=== PATIENT | male | born 1960 ===

== ENCOUNTER 2021-09-22 13:20 | Outpatient (REF) | payer MEDICAID, SELFPAY ==
--- NOTE | ~2021-09-22 | CT_ITS ---
EXAMINATION: CT CHEST SCREENING CLINICAL INFORMATION: Years of smoking. Still smoking COMPARISON: CT chest 08/24/2018 TECHNIQUE: Multidetector volumetric CT imaging of the chest is performed without contrast using low dose technique. Additional 2D coronal and sagittal reformatted images and axial 3D maximum intensity projection (MIP) images are generated on the CT workstation. This CT examination was performed using dose optimization techniques as appropriate, variously including the following: *Automated exposure control *Adjustment of mA and/or kV according to patient size (this includes techniques or standardized protocols for targeted exams where dose is matched to indication/reason for exam; i.e. extremities or head) *Use of iterative reconstruction technique DLP: 56 mGy-cm FINDINGS: LUNGS: There is mild centrilobular emphysema. There are scattered pulmonary nodules. A 3 mm nodule left upper lobe, axial image 122/6, pleural-based 5 mm pulmonary nodule right upper lobe, axial image 117/6, 4 mm nodule right lower lobe, axial image 266/6, 2 mm nodule left lower lobe lateral segment image 390/6 and a large calcified 1 cm nodule left lower lobe, axial image 378/6. No new nodules are seen. There is no acute consolidation, mass or ground-glass density. MEDIASTINUM: The thyroid lobes are symmetrical and normal. The central trachea and the bronchi are widely patent. Heart size and the great vessels are normal caliber. No pericardial effusion seen. No abnormal mediastinal or hilar lymph nodes. PLEURA: There is no pleural effusion. No pleural mass or thickening. AXILLA: No lymphadenopathy. UPPER ABDOMEN: There is a 5 mm nodule left hepatic lobe adjacent diaphragm axial image 51/3 and a punctate calcification right hepatic lobe image 60/3, stable. Otherwise rest of the liver, spleen, pancreas and bilateral adrenal glands are unremarkable. OSSEOUS STRUCTURES: No lytic or sclerotic process seen. There is mild ventral spondylosis. CT/CT lung screening IMPRESSION: Emphysema with no acute process. Multiple pulmonary nodules are essentially stable since 08/24/2018. ASSESSMENT: Lung-RADS category 2: Benign RECOMMENDATION: Low-dose annual CT chest.
== END 2021-09-22 13:21 | disposition home or self-care (01) ==
LOC: HO.CT 13:20
PROVIDERS: PCP Internal Medicine; Visit Provider Physician Assistant Medical
DX: Z12.2 Encounter for screening for malignant neoplasm of respiratory organs (principal); F17.210 Nicotine dependence, cigarettes, uncomplicated
CPT/HCPCS: 71271

== ENCOUNTER 2021-10-04 12:26 | Outpatient (REF) | payer MEDICAID, SELFPAY ==
[2021-10-04 13:46] LABS: MANUAL DIFF FLAG NO
[2021-10-04 13:49] LABS: Basophils Absolute Auto 0.1 X10*3/uL (0.0-0.2); Basophils Percent Auto 1.2 % (0-2); Eosinophils Absolute Auto 0.1 X10*3/uL (0.0-0.4); Eosinophils Percent Auto 1.4 % (0-4); Hematocrit 50.8 % (42.0-52.0); Hemoglobin 16.3 g/dl (14.0-18.0); Imm Gran Abs Auto 0.02 X10*3/uL (0.00-0.03); Imm Gran Pct Auto 0.3 % (0.0-0.4); Lymphocytes Absolute Auto 2.3 X10*3/uL (1.2-4.9); Lymphocytes Percent Auto 33.1 % (20-40); Mean Corpuscular HGB Conc 32.1 g/dl (31.0-36.0); Mean Corpuscular Hemoglobin 29.3 pg (27.0-33.0); Mean Corpuscular Volume 91.4 fL (80.0-98.0); Mean Platelet Volume 11.3 fL (9.4-12.4); Monocytes Absolute Auto 0.6 X10*3/uL (0.1-1.2); Monocytes Percent Auto 8.9 % (2-11); Neutrophils Absolute Auto 3.8 x10*3/uL (2.0-8.3); Neutrophils Percent Auto 55.1 % (45-73); Platelet Count 221 X10*3/uL (160-400); Red Blood Count 5.56 X10*6/uL (4.60-5.80); Red Cell Distribution Width 13.1 % (11.0-16.0); White Blood Count 6.9 X10*3/uL (4.8-10.8)
[2021-10-04 14:24] LABS: Alanine Aminotransferase 14 U/L (0-40); Albumin Level 4.1 g/dL (3.5-5.0); Alkaline Phosphatase 76 U/L (39-117); Anion Gap 13 (12-20); Aspartate Amino Transferase 14 U/L (5-37); Bilirubin Total 0.6 mg/dL (0.0-1.0); Blood Urea Nitrogen 10 mg/dL (9-16); Calcium 8.9 mg/dL (8.4-10.2); Carbon Dioxide 27 mmol/L (22-29); Chloride 104 mmol/L (96-108); Cholesterol 210 mg/dL; Estimated Glomerular Filt Rate > 60; Glucose Fasting 100 mg/dL (60-99); HDL Cholesterol 41 mg/dL; LDL Cholesterol Calculated 153 mg/dl; Potassium 4.2 mmol/L (3.3-5.1); Sodium 140 mmol/L (135-145); Total Protein 6.9 g/dL (6.5-8.0); Triglycerides 83 mg/dL
[2021-10-04 14:48] LABS: Prostate Specific Antigen 1.87 ng/mL (<0.05-4.0)
== END 2021-10-04 12:27 | disposition home or self-care (01) ==
LOC: HO.10HDL 12:26
PROVIDERS: Visit Provider Internal Medicine
DX: Z00.00 Encounter for general adult medical examination without abnormal findings (principal); Z12.5 Encounter for screening for malignant neoplasm of prostate; K21.9 Gastro-esophageal reflux disease without esophagitis; J44.9 Chronic obstructive pulmonary disease, unspecified; H81.10 Benign paroxysmal vertigo, unspecified ear; Z72.0 Tobacco use
CPT/HCPCS: 36415; 80053; 80061; 84153; 85025

== ENCOUNTER 2022-01-17 11:58 | Outpatient (REF) | payer MEDICAID, SELFPAY ==
[2022-01-17 13:48] LABS: Alanine Aminotransferase 17 U/L (0-40); Alkaline Phosphatase 69 U/L (39-117); Anion Gap 11 (12-20); Aspartate Amino Transferase 14 U/L (5-37); Bilirubin Total 0.7 mg/dL (0.0-1.0); Blood Urea Nitrogen 10 mg/dL (9-16); Carbon Dioxide 26 mmol/L (22-29); Chloride 106 mmol/L (96-108); Cholesterol 183 mg/dL; Estimated Glomerular Filt Rate > 60; Glucose Random 105 mg/dL (60-115); HDL Cholesterol 42 mg/dL; LDL Cholesterol Calculated 120 mg/dl; Potassium 4.1 mmol/L (3.3-5.1); Sodium 139 mmol/L (135-145); Total Protein 6.7 g/dL (6.5-8.0); Triglycerides 106 mg/dL
== END 2022-01-17 11:59 | disposition home or self-care (01) ==
LOC: HO.10HDL 11:58
PROVIDERS: Visit Provider Internal Medicine
DX: E78.00 Pure hypercholesterolemia, unspecified (principal); J43.9 Emphysema, unspecified; J98.4 Other disorders of lung; Z72.0 Tobacco use
CPT/HCPCS: 36415; 80053; 80061

== ENCOUNTER 2022-11-29 13:02 | Outpatient (REF) | payer MEDICAID, SELFPAY ==
--- NOTE | ~2022-11-29 | CT_ITS ---
EXAMINATION: CT CHEST SCREENING CLINICAL INFORMATION: Nicotine dependence. COMPARISON: CT chest 09/22/2021. TECHNIQUE: Multidetector volumetric CT imaging of the chest is performed without contrast using low dose technique. Additional 2-D coronal and sagittal reformatted images and axial 3-D maximum intensity projection (MIP) images are generated on the CT workstation. This CT examination was performed using dose optimization techniques as appropriate, variously including the following: *Automated exposure control *Adjustment of mA and/or kV according to patient size (this includes techniques or standardized protocols for targeted exams where dose is matched to indication/reason for exam; i.e. extremities or head) *Use of iterative reconstruction technique DLP: 57 mGy-cm FINDINGS: LUNGS: There is mild centrilobular emphysema without any acute process. Scattered pulmonary nodules are visualized. There is a 2 mm nodule right upper lobe axial image 133/6, 3 mm nodule left upper lobe axial image 117/6, 5 mm nodule subpleural based right upper lobe axial image 117/6, perivascular 2 mm nodule right upper lobe axial image 193/6, 4 mm nodule right lower lobe axial image 257/6, 1 cm calcified nodule left lower lobe axial image 363/6. MEDIASTINUM: The thyroid lobes are symmetric and normal. The central trachea and the bronchi are widely patent. The heart size and the great vessels are normal caliber. No pericardial effusion. No abnormal size mediastinal or hilar lymph nodes. CORONARY ARTERY CALCIFICATION: No abnormal coronary artery calcifications. PLEURA: There is no pleural effusion, thickening or calcification. AXILLA: Small shotty lymph nodes are seen in bilateral axillae, stable. UPPER ABDOMEN: There is a 1 cm hypodense lesion left hepatic lobe. Previously measured 5 mm. 2 mm calcification seen in the right hepatic lobe. The gallbladder is out. The spleen, pancreas and adrenal glands are unremarkable. OSSEOUS STRUCTURES: No aggressive lytic or sclerotic process seen. There is mild ventral spondylosis mid and lower dorsal spine. 2 mm calcification seen right hepatic lobe. CT/CT lung screening IMPRESSION: Multiple pulmonary nodules are stable. A 1 cm left hepatic lobe nodule is likely a small cyst with minimal change. ASSESSMENT: Lung-RADS category 2: Benign. RECOMMENDATION: Low-dose annual CT chest. Fleischner guidelines were followed.
== END 2022-11-29 13:03 | disposition home or self-care (01) ==
LOC: HO.CT 13:02
PROVIDERS: PCP Internal Medicine; Visit Provider Physician Assistant Medical
DX: Z12.2 Encounter for screening for malignant neoplasm of respiratory organs (principal); F17.210 Nicotine dependence, cigarettes, uncomplicated
CPT/HCPCS: 71271

== ENCOUNTER 2023-02-02 10:32 | Outpatient (REF) | payer MEDICAID, SELFPAY ==
[2023-02-02 13:27] LABS: MANUAL DIFF FLAG NO
[2023-02-02 13:33] LABS: Basophils Absolute Auto 0.1 X10*3/uL (0.0-0.2); Basophils Percent Auto 1.2 % (0-2); Eosinophils Absolute Auto 0.1 X10*3/uL (0.0-0.4); Eosinophils Percent Auto 1.2 % (0-4); Hematocrit 51.9 % (42.0-52.0); Hemoglobin 16.1 g/dl (14.0-18.0); Imm Gran Abs Auto 0.02 X10*3/uL (0.00-0.03); Imm Gran Pct Auto 0.2 % (0.0-0.4); Lymphocytes Absolute Auto 2.5 X10*3/uL (1.2-4.9); Lymphocytes Percent Auto 27.6 % (20-40); Mean Corpuscular Hemoglobin 28.3 pg (27.0-33.0); Mean Corpuscular Volume 91.4 fL (80.0-98.0); Mean Platelet Volume 12.1 fL (9.4-12.4); Monocytes Absolute Auto 0.7 X10*3/uL (0.1-1.2); Neutrophils Absolute Auto 5.7 x10*3/uL (2.0-8.3); Neutrophils Percent Auto 61.8 % (45-73); Platelet Count 201 X10*3/uL (160-400); Red Blood Count 5.68 X10*6/uL (4.60-5.80); Red Cell Distribution Width 13.2 % (11.0-16.0); White Blood Count 9.1 X10*3/uL (4.8-10.8)
[2023-02-02 14:12] LABS: Alanine Aminotransferase 23 U/L (0-40); Alkaline Phosphatase 91 U/L (39-117); Anion Gap 12 (12-20); Aspartate Amino Transferase 17 U/L (5-37); Bilirubin Total 0.3 mg/dL (0.0-1.0); Blood Urea Nitrogen 15 mg/dL (9-16); Calcium 8.8 mg/dL (8.4-10.2); Carbon Dioxide 28 mmol/L (22-29); Chloride 109 mmol/L (96-108); Cholesterol 165 mg/dL; Estimated Glomerular Filt Rate > 60; Glucose Random 105 mg/dL (60-115); HDL Cholesterol 37 mg/dL; LDL Cholesterol Calculated 108 mg/dl; Potassium 4.7 mmol/L (3.3-5.1); Sodium 144 mmol/L (135-145); Total Protein 6.5 g/dL (6.5-8.0); Triglycerides 100 mg/dL
[2023-02-02 14:26] LABS: Prostate Specific Antigen Scr 2.32 ng/mL (<0.05-4.0)
== END 2023-02-02 10:33 | disposition home or self-care (01) ==
LOC: HO.10HDL 10:32
PROVIDERS: Visit Provider Internal Medicine
DX: Z00.00 Encounter for general adult medical examination without abnormal findings (principal); F41.8 Other specified anxiety disorders; R19.7 Diarrhea, unspecified; Z72.0 Tobacco use
CPT/HCPCS: 36415; 80053; 80061; 84153; 85025

== ENCOUNTER 2023-03-20 20:32 | Emergency (ER) | payer MEDICAID, SELFPAY ==
--- NOTE | ~2023-03-20 | CT_ITS ---
EXAMINATION: CT ABDOMEN AND PELVIS WITHOUT CONTRAST CLINICAL INFORMATION: Right-sided abdominal pain. Rule out kidney stone. COMPARISON: None available. TECHNIQUE: Multidetector volumetric imaging was performed from the superior aspect of the liver through the pubic symphysis. Sagittal and coronal reformatted images were obtained on the technologist's workstation. This CT examination was performed using dose optimization techniques as appropriate, variously including the following: *Automated exposure control *Adjustment of mA and/or kV according to patient size (this includes techniques or standardized protocols for targeted exams where dose is matched to indication/reason for exam; i.e. extremities or head) *Use of iterative reconstruction technique DLP: 466 mGy-cm FINDINGS: LUNG BASES: The visualized lung bases are unremarkable. LIVER, GALLBLADDER, AND BILIARY TREE: The liver is normal in size, shape, and attenuation. Calcified granuloma in the right hepatic lobe. Simple cyst lateral segment of liver. No suspicious hepatic lesion or biliary ductal dilatation is present. Cholecystectomy. PANCREAS: Unremarkable. SPLEEN: Unremarkable. ADRENAL GLANDS: Unremarkable. KIDNEYS AND URETERS: The kidneys are normal in size, shape, and attenuation. No hydronephrosis, hydroureter, or calculi seen. There is a 7.6 cm simple fluid attenuating cyst in the lower pole right kidney, and a 1.4 cm simple cyst in the upper pole right kidney. No follow-up imaging recommended. No perinephric stranding. BLADDER: Unremarkable. GASTROINTESTINAL TRACT: Left colonic diverticulosis. No evidence of diverticulitis. Normal appendix. Stomach and small bowel unremarkable. ABDOMINAL WALL: No significant hernia is appreciated. LYMPH NODES: Normal. VASCULAR: Unremarkable. PELVIC VISCERA: Prostate is enlarged with median lobe impressing into the bladder base approximately 2 cm. Seminal vesicles unremarkable. OSSEOUS STRUCTURES: No acute or suspicious osseous abnormalities. CT/CT abdomen pelvis wo IV con IMPRESSION: * No urinary calculi or hydronephrosis. * Left colonic diverticulosis without evidence of diverticulitis. * Cholecystectomy.
[2023-03-20 20:35] VITALS: BP 146/76; PULSE 72; RESP 18; TEMP 36.8; O2SAT 94; BMI 28.3
--- NOTE | 2023-03-20 20:35 | ED_ITS ---
HPI - Abdominal Pain General Chief Complaint: Abdominal Pain Stated Complaint: right upper quad pain Time Seen by Provider: 03/20/23 22:25 Source: patient, family and translator/interpreter Mode of arrival: ambulatory Limitations: no limitations History of Present Illness HPI narrative: 62-year-old male came in for evaluation of right-sided upper abdominal pain. Pain was described to be intermittent moderate 5/10 localized to the right upper abdomen area pain is intermittent comes and goes usually get relieved after eat, patient had similar pain in the past presented to [facility] diagnosed with cholecystitis patient had cholecystectomy about 10 months ago patient still get that similar pain every now and then, pain started since this morning localized to the right upper quadrant, no nausea, no vomiting, no chills, no fever. Last bowel movement was 2 days ago with hard stool patient usually suffer from cons tipation. No dysuria, no frequency urination, no hematuria. Only past abdominal surgery is cholecystectomy. Related Data Allergies Allergy/AdvReac Type Severity Reaction Status Date / Time aspirin Allergy Unknown gastritis Verified 03/20/23 20:39 penicillin V Allergy Unknown rash Verified 03/20/23 20:39 Review of Systems Review of Systems All other systems are reviewed and are negative Constitutional: Reports as per HPI and Reports no additional constitutional complaints Eyes: Reports as per HPI and Reports no additional eye complaints Reports system reviewed and no additional complaints, except as documented Cardiovascular: Reports as per HPI and Reports no additional cardiovascular complaints Respiratory: Reports as per HPI and Reports no additional respiratory complaints Gastrointestinal: Reports as per HPI and Reports no additional gastrointestinal complaints Genitourinary: Reports no additional female genitourinary complaints Musculoskeletal: Reports no additional musculoskeletal complaints Skin/Breast: Reports system reviewed and no additional complaints, except as docu Psychiatric: Reports no additional psychiatric complaints Endocrine: Reports no additional endocrine complaints Hematologic/Lymphatic: Reports no additional hematologic/lymphatic complaints Allergic/Immunologic: Reports no additional allergic/immunologic complaints Reports system reviewed and no additional complaints, except as documented and Reports Abnormal speech present [facility] Social History Social History Advance Directives: No Advance Directives Information Provided: Yes Physical Exam ED Vital Signs: Vital Signs - 24 hr 03/20/23 20:35 03/20/23 22:39 Temperature 98.2 F Pulse Rate 72 72 Respiratory Rate 18 18 Blood Pressure 146/76 H Pulse Oximetry 94 Oxygen Delivery Method Room Air BMI result Body Mass Index 28.3 Vital signs have been reviewed as appeared to be correct. Blood pressure normal. Heart rate normal. Respiration rate normal. Temperature normal. Oxygen saturation normal. Appearance: Alert. Oriented X3. No acute distress. Head: Normal external exam. Normocephalic. Atraumatic. No Mehta signs noted. No raccoon eyes noted Eyes: PERRLA. EOMI. Conjunctiva and sclera normal. Eyelids normal. ENT: TM's Normal. Pharynx normal. Uvula midline. Moist mucous membranes. No trismus noted. No drooling noted. No muffled voice noted. Neck: Normal inspection. Neck supple. FROM. No adenopathy. Thyroid Normal. No meningeal signs. No neck mass noted. CVS: Normal heart rate and rhythm. Heart sound normal. No murmurs noted. Pulses normal throughout. Respiratory: No respiratory distress. Painless inspiration. Breath sounds normal. No wheezes/rales/rhonchi noted. Chest nontender. No accessory muscle usage noted or decreased air movement noted. Abdomen: Soft and nontender. Bowel sounds normal in all 4 quadrants. No distention noted. No organomegaly noted. No visible injury noted. Back: No CVA tenderness. Full range of motion noted. Skin: Skin warm and dry. Normal skin color. Normal skin turgor. No rashes/ lesions/lacerations noted. Extremities: No lower extremity edema. Extremities exhibit normal range of motion. Extremities nontender. Neuro: Oriented X 3. Cranial nerve exam: II-XII are grossly intact No motor deficit. No sensory deficit. Reflexes normal. Course Course Course Narrative: This is a rapid medical exam. Deferred additional HPI, ROS, PE to primary provider. 62 yo male who had cholecystecomy in August at [facility] here RUQ for months (pain has continued since surgery). No other associated symptoms. Will check labs, UA. VSS Reevaluation(s) Reevaluation #1: 62-year-old male with intermittent right abdominal pain, abdominal exam is unremarkable, CT showing no postoperative complication from cholecystectomy, patient is scheduled to have colonoscopy next month. Unremarkable labs. Medical Decision Making Differential Diagnosis Differential Diagnoses: The differential diagnosis associated with the presenta tion includes (Acute appendicitis, kidney stone, post cholecystectomy complication, diverticulitis, SBO, UTI, electrolyte abnormality, severe anemia.) Admission/Observation Consideration of admission/observation: Escalation of care including admission /observation considered Lab Data MDM Lab Attestation statement: I reviewed the patient's lab results. 03/20/23 20:51 03/20/23 20:51 Labs: Lab Results 03/20/23 03/20/23 03/20/23 Range/Units 20:51 20:51 20:51 WBC 9.2 (4.8-10.8) X10*3/uL RBC 5.44 (4.60-5.80) X10*6/uL Hgb 16.0 (14.0-18.0) g/dl Hct 49.3 (42.0-52.0) % MCV 90.6 (80.0-98.0) fL MCH 29.4 (27.0-33.0) pg MCHC 32.5 (31.0-36.0) g/dl RDW 13.2 (11.0-16.0) % Plt Count 221 (160-400) X10*3/uL MPV 11.1 (9.4-12.4) fL Immature Gran % (Auto) 0.3 (0.0-0.4) % Neut % (Auto) 52.9 (45-73) % Lymph % (Auto) 35.5 (20-40) % [place] % (Auto) 9.2 (2-11) % Eos % (Auto) 1.0 (0-4) % Baso % (Auto) 1.1 (0-2) % Lymph # (Auto) 3.3 (1.2-4.9) X10*3/uL [place] # (Auto) 0.8 (0.1-1.2) X10*3/uL Eos # (Auto) 0.1 (0.0-0.4) X10*3/uL Baso # (Auto) 0.1 (0.0-0.2) X10*3/uL Abs Immat Gran (auto) 0.03 (0.00-0.03) X10*3/uL Absolute Neuts (auto) 4.8 (2.0-8.3) x10*3/uL Absolute Nucleated RBC 0.000 (0.0-0.012) X10*3/uL Nucleated RBC % (auto) 0.0 (0.0-0.2) /100WBC Sodium 141 (135-145) mmol/L Potassium 4.4 (3.3-5.1) mmol/L Chloride 107 (96-108) mmol/L Carbon Dioxide 27 (22-29) mmol/L Anion Gap 11 L (12-20) BUN 12 (9-16) mg/dL Creatinine 0.87 (0.5-1.4) mg/dL Estim Creat Clear Calc 83.2 Estimated GFR > 60 Random Glucose 100 (60-115) mg/dL Calcium 8.7 (8.4-10.2) mg/dL Total Bilirubin 0.5 (0.0-1.0) mg/dL Direct Bilirubin 0.1 (0.0-0.5) mg/dL AST 14 (5-37) U/L ALT 18 (0-40) U/L Alkaline Phosphatase 85 (39-117) U/L Total Protein 6.5 (6.5-8.0) g/dL Albumin 3.9 (3.5-5.0) g/dL Lipase 11 (8-78) U/L Urine Color Yellow Urine Appearance Clear Urine pH 5.5 (5.0-9.0) Ur Specific [place] 1.020 (1.005-1.025) Urine Protein Negative (Neg-Trace) mg/dL Urine Glucose (UA) Negative (Negative) mg/dL Urine Ketones Negative (Negative) mg/dL Urine Blood Small (1+) H (Negative) Urine Nitrite Negative (Negative) Ur Leukocyte Esterase Negative (Negative) Urine RBC 3-5 H (0-2) /HPF Urine WBC 0-5 (0-5) /HPF Ur Squamous Epith Cells 0-2 (0-2) /HPF Urine Bacteria None Seen (None Seen) Hyaline Casts 0-2 (0-2) /LPF Independent Interpretation I performed an independent interpretation of an: CT Scan (Abdomen and pelvis: No acute abnormalities.) Radiology Impression Discussion of test interpretation with radiology: I have reviewed the radiologist's reading. Chronic Conditions Patient?s care impacted by: Other (Chronic abdominal pain, and constipation.) Discharge Plan Discharge Clinical Impression: Abdominal pain Patient Disposition: Home, Self-Care Instructions: Abdominal Pain (ED) Referrals: Becky Rayo MD [Primary Care Provider] -
[2023-03-20 20:56] LABS: MANUAL DIFF FLAG NO
[2023-03-20 21:01] LABS: Appearance Urine Clear; Color Urine Yellow; Glucose Urine UA Negative (Negative); Leukocyte Esterase Urine Negative (Negative); Nitrite Urine Negative (Negative); PH 5.5 (5.0-9.0); UMIC TRIGGER UACC YES; Urine Blood Small (1+) (Negative); Urine Ketones Negative (Negative); Urine Protein Negative (Neg-Trace)
[2023-03-20 21:07] LABS: Bacteria Urine None Seen (None Seen); Hyaline Casts Urine 0-2 /LPF (0-2); Squamous Epithelial Cell Urine 0-2 /HPF (0-2); WBC Urine 0-5 /HPF (0-5)
[2023-03-20 21:08] LABS: Basophils Absolute Auto 0.1 X10*3/uL (0.0-0.2); Basophils Percent Auto 1.1 % (0-2); Eosinophils Absolute Auto 0.1 X10*3/uL (0.0-0.4); Hematocrit 49.3 % (42.0-52.0); Imm Gran Abs Auto 0.03 X10*3/uL (0.00-0.03); Imm Gran Pct Auto 0.3 % (0.0-0.4); Lymphocytes Absolute Auto 3.3 X10*3/uL (1.2-4.9); Lymphocytes Percent Auto 35.5 % (20-40); Mean Corpuscular HGB Conc 32.5 g/dl (31.0-36.0); Mean Corpuscular Hemoglobin 29.4 pg (27.0-33.0); Mean Corpuscular Volume 90.6 fL (80.0-98.0); Mean Platelet Volume 11.1 fL (9.4-12.4); Monocytes Absolute Auto 0.8 X10*3/uL (0.1-1.2); Monocytes Percent Auto 9.2 % (2-11); Neutrophils Absolute Auto 4.8 x10*3/uL (2.0-8.3); Neutrophils Percent Auto 52.9 % (45-73); Platelet Count 221 X10*3/uL (160-400); Red Blood Count 5.44 X10*6/uL (4.60-5.80); Red Cell Distribution Width 13.2 % (11.0-16.0); White Blood Count 9.2 X10*3/uL (4.8-10.8)
[2023-03-20 21:11] LABS: Alanine Aminotransferase 18 U/L (0-40); Albumin Level 3.9 g/dL (3.5-5.0); Alkaline Phosphatase 85 U/L (39-117); Anion Gap 11 (12-20); Aspartate Amino Transferase 14 U/L (5-37); Bilirubin Direct 0.1 mg/dL (0.0-0.5); Bilirubin Total 0.5 mg/dL (0.0-1.0); Blood Urea Nitrogen 12 mg/dL (9-16); Calcium 8.7 mg/dL (8.4-10.2); Carbon Dioxide 27 mmol/L (22-29); Chloride 107 mmol/L (96-108); Creatinine Clr Calc Pharmacy 83.2; Estimated Glomerular Filt Rate > 60; Glucose Random 100 mg/dL (60-115); Lipase 11 U/L (8-78); Potassium 4.4 mmol/L (3.3-5.1); Sodium 141 mmol/L (135-145); Total Protein 6.5 g/dL (6.5-8.0)
[2023-03-20 22:39] VITALS: PULSE 72; RESP 18
== END 2023-03-20 23:56 | disposition home or self-care (01) ==
PROVIDERS: Nurse Practitioner Family; Emergency Provider Emergency Medicine; PCP Internal Medicine
DX: R10.11 Right upper quadrant pain (principal); Z90.49 Acquired absence of other specified parts of digestive tract
CPT/HCPCS: 36415; 74176; 80048; 80076; 81001; 81003; 83690; 85025; 99284

== ENCOUNTER 2023-06-17 20:57 | Emergency (ER) | payer MEDICAID, SELFPAY ==
[2023-06-17 21:04] VITALS: BP 135/69; PULSE 75; RESP 18; TEMP 37.4; O2SAT 95; BMI 29.2
[2023-06-17 21:32] LABS: MANUAL DIFF FLAG NO
[2023-06-17 21:35] LABS: Basophils Absolute Auto 0.1 X10*3/uL (0.0-0.2); Basophils Percent Auto 1.1 % (0-2); Eosinophils Absolute Auto 0.1 X10*3/uL (0.0-0.4); Eosinophils Percent Auto 1.4 % (0-4); Hemoglobin 15.5 g/dl (14.0-18.0); Imm Gran Abs Auto 0.03 X10*3/uL (0.00-0.03); Imm Gran Pct Auto 0.3 % (0.0-0.4); Lymphocytes Percent Auto 33.4 % (20-40); Mean Corpuscular HGB Conc 32.3 g/dl (31.0-36.0); Mean Corpuscular Hemoglobin 28.9 pg (27.0-33.0); Mean Corpuscular Volume 89.4 fL (80.0-98.0); Mean Platelet Volume 10.6 fL (9.4-12.4); Monocytes Absolute Auto 0.7 X10*3/uL (0.1-1.2); Monocytes Percent Auto 8.2 % (2-11); Neutrophils Percent Auto 55.6 % (45-73); Platelet Count 226 X10*3/uL (160-400); Red Blood Count 5.37 X10*6/uL (4.60-5.80); Red Cell Distribution Width 12.9 % (11.0-16.0); White Blood Count 9.1 X10*3/uL (4.8-10.8)
[2023-06-17 21:47] LABS: Alanine Aminotransferase 14 U/L (0-40); Albumin Level 3.7 g/dL (3.5-5.0); Alkaline Phosphatase 79 U/L (39-117); Anion Gap 11 (12-20); Aspartate Amino Transferase 14 U/L (5-37); Bilirubin Direct < 0.2 mg/dL (0.0-0.5); Bilirubin Total 0.2 mg/dL (0.0-1.0); Blood Urea Nitrogen 12 mg/dL (9-16); Calcium 8.9 mg/dL (8.4-10.2); Carbon Dioxide 27 mmol/L (22-29); Chloride 108 mmol/L (96-108); Creatinine Clr Calc Pharmacy 82.5; Estimated Glomerular Filt Rate > 60; Glucose Random 100 mg/dL (60-115); Lipase 13 U/L (8-78); Potassium 3.5 mmol/L (3.3-5.1); Sodium 142 mmol/L (135-145); Total Protein 6.7 g/dL (6.5-8.0)
--- NOTE | 2023-06-17 23:21 | ED_ITS ---
HPI - Abdominal Pain General Chief Complaint: Abdominal Pain Stated Complaint: abd pain Time Seen by Provider: 06/17/23 23:16 Source: patient Mode of arrival: ambulatory Limitations: no limitations History of Present Illness HPI narrative: Patient is smoker with history of cholecystectomy in 09/20 comes here for ep igastric pain since patient had the surgery done patient been to multiple hospitals for same workup was negative scheduled to see accounts receivable manager next month pain gets worse when he is empty stomach wakes up in the night with pain and after eating pain gets better no nausea no vomiting no melena no use of steroids or NSAIDs patient never had endoscopy done in the past no nausea no vomiting Related Data Previous Rx's Medication Instructions Recorded pantoprazole 40 mg tablet,delayed 40 mg PO DAILY #30 tabs 06/17/23 release (Protonix) sucralfate 1 gram tablet 1 g PO TID #90 tabs 06/17/23 Allergies Allergy/AdvReac Type Severity Reaction Status Date / Time aspirin Allergy Unknown gastritis Verified 03/20/23 20:39 penicillin V Allergy Unknown rash Verified 03/20/23 20:39 morphine AdvReac Chest Pain Verified 06/17/23 21:11 Review of Systems Review of Systems Yes all other systems are reviewed and are negative [facility] Social History Social History Advance Directives: No Advance Directives Information Provided: No Physical Exam ED Vital Signs: Vital Signs - 24 hr 06/17/23 21:04 Temperature 99.4 F Pulse Rate 75 Respiratory Rate 18 Blood Pressure 135/69 Pulse Oximetry 95 BMI result Body Mass Index 29.2 Appearance: Alert. Oriented X3. No acute distress. Eyes: PERRLA, No Nystagmus ENT: Pharynx normal. Oral Mucosa moist Neck: Normal inspection. Neck supple. CVS: Normal heart rate and rhythm. Pulses normal. Respiratory: No respiratory distress. Equal air entry bilateral, no wheezing/rales/rhonchi Abdomen: Soft mild epigastric tenderness Bowel sounds are present, no mass palpable, no CVA tenderness Skin: Skin warm and dry. Normal skin color. Normal skin turgor. Extremities: No lower extremity edema. No calf tenderness Neuro: Oriented X 3. No motor deficit. Medical Decision Making Medical Decision Making MDM Narrative: Patient is status post cholecystectomy smoker clinically patient does have a gastritis/duodenitis with pain getting worse on empty stomach discharge patient on Protonix patient is scheduled to see accounts receivable manager next week for endoscopy Differential Diagnosis Differential Diagnoses: The differential diagnosis associated with the presentation includes Gastritis/duodenitis/CBD stone Lab Data MDM Lab Attestation statement: I reviewed the patient's lab results. 06/17/23 21:27 06/17/23 21:27 Labs: Lab Results 06/17/23 06/17/23 Range/Units 21:27 21:27 WBC 9.1 (4.8-10.8) X10*3/uL RBC 5.37 (4.60-5.80) X10*6/uL Hgb 15.5 (14.0-18.0) g/dl Hct 48.0 (42.0-52.0) % MCV 89.4 (80.0-98.0) fL MCH 28.9 (27.0-33.0) pg MCHC 32.3 (31.0-36.0) g/dl RDW 12.9 (11.0-16.0) % Plt Count 226 (160-400) X10*3/uL MPV 10.6 (9.4-12.4) fL Immature Gran % (Auto) 0.3 (0.0-0.4) % Neut % (Auto) 55.6 (45-73) % Lymph % (Auto) 33.4 (20-40) % [place] % (Auto) 8.2 (2-11) % Eos % (Auto) 1.4 (0-4) % Baso % (Auto) 1.1 (0-2) % Lymph # (Auto) 3.0 (1.2-4.9) X10*3/uL [place] # (Auto) 0.7 (0.1-1.2) X10*3/uL Eos # (Auto) 0.1 (0.0-0.4) X10*3/uL Baso # (Auto) 0.1 (0.0-0.2) X10*3/uL Abs Immat Gran (auto) 0.03 (0.00-0.03) X10*3/uL Absolute Neuts (auto) 5.0 (2.0-8.3) x10*3/uL Absolute Nucleated RBC 0.000 (0.0-0.012) X10*3/uL Nucleated RBC % (auto) 0.0 (0.0-0.2) /100WBC Sodium 142 (135-145) mmol/L Potassium 3.5 D (3.3-5.1) mmol/L Chloride 108 (96-108) mmol/L Carbon Dioxide 27 (22-29) mmol/L Anion Gap 11 L (12-20) BUN 12 (9-16) mg/dL Creatinine 0.86 (0.5-1.4) mg/dL Estim Creat Clear Calc 82.5 Estimated GFR > 60 Random Glucose 100 (60-115) mg/dL Calcium 8.9 (8.4-10.2) mg/dL Total Bilirubin 0.2 (0.0-1.0) mg/dL Direct Bilirubin < 0.2 (0.0-0.5) mg/dL AST 14 (5-37) U/L ALT 14 (0-40) U/L Alkaline Phosphatase 79 (39-117) U/L Total Protein 6.7 (6.5-8.0) g/dL Albumin 3.7 (3.5-5.0) g/dL Lipase 13 (8-78) U/L Medications Administered Discontinued Medications Generic Name Dose Route Start Last Admin Trade Name Freq PRN Reason Stop Dose Admin Al Hydroxide/Mg Hydroxide 30 ml 06/17/23 23:45 06/17/23 23:58 Magnesium Hydrox/Alum Hydrox 30 Ml Oral.Susp PO 06/17/23 23:46 30 ml ONCE ONE Administration Omeprazole 40 mg 06/17/23 23:45 06/17/23 23:58 Omeprazole 40 Mg Capsule.Dr PO 06/17/23 23:46 40 mg ONCE ONE Administration Discharge Plan Discharge Clinical Impression: Chronic gastritis Patient Disposition: Home, Self-Care Instructions: Gastritis (ED) Additional Instructions: Drink plenty of fluids Stop smoking Take the medication as prescribed and follow-up with accounts receivable manager as scheduled Prescriptions: New pantoprazole [Protonix] 40 mg tablet,delayed release (DR/EC) 40 mg PO DAILY Qty: 30 0RF sucralfate 1 gram tablet 1 g PO TID Qty: 90 0RF Rx Instructions: Take 1 tablet half an hour before your meals Interventions: ED Discharge Assessment Last Done: 06/18/23 00:03 Discharge Date/Time: 06/18/23 00:04 Print Language: [place]
[2023-06-17] MEDS: Magnesium Hydrox/Alum Hydrox 30 ML ORAL.SUSP PO (23:58)
[2023-06-17] MEDS: Omeprazole 40 MG CAPSULE.DR PO (23:58)
== END 2023-06-18 00:04 | disposition home or self-care (01) ==
PROVIDERS: Emergency Provider Internal Medicine; PCP Internal Medicine
DX: K29.50 Unspecified chronic gastritis without bleeding (principal)
CPT/HCPCS: 36415; 80048; 80076; 83690; 85025; 99282; 99283

== ENCOUNTER 2023-07-10 11:31 | Outpatient (REF) | payer MEDICAID, SELFPAY ==
[2023-07-10 13:42] LABS: Cholesterol 157 mg/dL (<200); HDL Cholesterol 37 mg/dL (>40); LDL Cholesterol Calculated 100 mg/dL (<100); Triglycerides 102 mg/dL (<150)
== END 2023-07-10 11:32 | disposition home or self-care (01) ==
LOC: HO.10HDL 11:31
PROVIDERS: Visit Provider Internal Medicine
DX: J44.9 Chronic obstructive pulmonary disease, unspecified (principal); R10.11 Right upper quadrant pain; R31.29 Other microscopic hematuria; Z72.0 Tobacco use
CPT/HCPCS: 36415; 80061

== ENCOUNTER 2023-07-17 09:09 | Day surgery (SDC) | payer MEDICAID, SELFPAY ==
[2023-07-17 10:25] VITALS: BMI 27.8
[2023-07-17 10:28] VITALS: BP 127/76; PULSE 67; RESP 18; TEMP 36.8; O2SAT 95
[2023-07-17] MEDS: Lactated Ringers 1,000 ML 50 ML IVCONT (10:52)
--- NOTE | 2023-07-17 10:56 | P.CONAN_ITS ---
HPI - Anesthesia Eval Consult details Narrative: 62 M for EGD and colonoscopy [facility] Past Medical History Medical History (Updated 07/13/23 @ 13:47 by Angélica Newman, RN) Hyperlipemia GERD (gastroesophageal reflux disease) Asthma Family History Family history of problems with anesthesia: No Surgical History Surgical History (Updated 07/13/23 @ 13:47 by Angélica Newman RN) History of tonsillectomy H/O hand surgery Hx of colonoscopy History of Problems with Anesthesia: No Social History Social History Patient Tobacco Use Status: Current everyday Tobacco user Tobacco use type: Cigarette Cigarette Packs Per Day: 1 Cigarettes Per Day: 20.0 Date Education Initiated: 07/17/23 Use of substances other than those prescribed or required for medical reasons: No Are you DNR?: No Advance Directives: No Advance Directives Information Provided: Yes Meds Allergies Allergy/AdvReac Type Severity Reaction Status Date / Time aspirin Allergy Unknown gastritis Verified 03/20/23 20:39 penicillin V Allergy Unknown rash Verified 03/20/23 20:39 morphine AdvReac Chest Pain Verified 06/17/23 21:11 Active Medications: Current Medications Lactated Ringer's (Lr) 1,000 mls @ 50 mls/hr IVCONT .Q20H ADRIANA Last Admin: 07/17/23 10:52 Dose: 50 mls/hr Sodium Biphosphate/Sodium Phosphate (Sodium Phosphate,Roane-Dibasic 133 Ml Enema) 133 ml HI ONCE PRN PRN Reason: Poor Colonoscopy Prep Results Home Medications Medication Instructions Recorded Confirmed Last Taken Type atorvastatin 80 mg tablet 80 mg PO BEDTIME 07/13/23 07/13/23 Unknown History bupropion HCl 300 mg 24 hr tablet, 300 mg PO DAILY 07/13/23 07/13/23 Unknown History extended release ondansetron 4 mg disintegrating 4 mg PO Q12H PRN nausea 07/13/23 07/13/23 Unknown History tablet pantoprazole 40 mg tablet,delayed 40 mg PO DAILY 07/13/23 07/13/23 Unknown History release umeclidinium 62.5 mcg-vilanterol 1 ea inhalation DAILY 07/13/23 07/13/23 Unknown History 25 mcg/actuation powdr for inhalation (Anoro Ellipta) Exam Exam Date and Time: July 17, 2023 1056 Height,Weight and Vital Signs: Height 5 ft 4 in Weight 73.482 kg Last Vital Signs Temp 98.3 F 07/17/23 10:28 Pulse 67 07/17/23 10:28 Resp 18 07/17/23 10:28 BP 127/76 07/17/23 10:28 Pulse Ox 95 07/17/23 10:28 O2 Del Method Room Air 07/17/23 10:28 Airway Mallampati Class: III Loose/Missing/Broken Teeth: Yes Assessment and Plan Assessment Anesthesia Assessment: Anesthesia Plan Discussed and Chart Reviewed Final Anesthetic Review Family History of Problems with Anesthesia: No History of Problems with Anesthesia: No NPO: Yes ASA Class: III Final Preanesthetic Review: Meds/Allgs Chart Reviewed, Consent Obtained/Reviewed and Anes Risks/Benef Reviewed Patient Risk: Intermediate Procedure Risk: Intermediate Anesthetic Plan Anesthetic Plan: MAC: and Agree w/ Assess. and Plan Disposition: Standard PACU
[2023-07-17 12:30] VITALS: BP 116/56; PULSE 80; RESP 16; TEMP 36.2; O2SAT 98
--- NOTE | 2023-07-17 12:36 | P.BOP_ITS ---
Brief Operative Note Date of Service: 07/17/23 Pre-op diagnosis: GERD, Screening Post-op diagnosis: other (Hiatal hernia, Colon Polyps) Procedure: Colonoscopy to the cecum and TI with hot snare polypectomy x 4 with placement of 2 Resolution clips at 40cm Surgeon: Beto Bella Anesthesia: MAC Was an Pharmacovigilance Scientist used for this Procedure?: No Estimated blood loss (mL): 2.0 Pathology: other (A. Polyps x 2 Transverse colon B. Polyp at 50cm C. EG Junction at 39cm) Condition: stable Disposition: PACU
[2023-07-17 12:45] VITALS: BP 91/71; PULSE 87; RESP 16; O2SAT 98
[2023-07-17 13:13] VITALS: BP 133/88; PULSE 58; RESP 18; TEMP 36.4; O2SAT 94
--- NOTE | 2023-07-17 13:39 | OP_ITS ---
DATE OF SERVICE: 07/17/2023 SURGEON: Beto Bella MD INDICATIONS: The patient presents for evaluation of colorectal cancer screening and personal history of tubular adenoma of the colon, as well as gastroesophageal reflux. Full consent has been obtained from him for both procedures, including risks of bleeding and perforation. PREOPERATIVE DIAGNOSIS: POSTOPERATIVE DIAGNOSIS: PROCEDURE PERFORMED: Colonoscopy to the cecum and terminal ileum with hot snare polypectomy x 4 with placement of resolution clips at 40 cm and esophagogastroduodenoscopy with biopsies. ESTIMATED BLOOD LOSS: COMPLICATIONS: ANESTHESIA: Monitored anesthesia care. ASSISTANTS: SPECIMENS: PREOPERATIVE DIAGNOSES: Gastroesophageal reflux, colorectal cancer screening, personal history of tubular adenoma of the colon, colon polyps, diverticulosis, internal hemorrhoids, hiatal hernia, reflux. DESCRIPTION OF PROCEDURE: The patient was placed in the left lateral decubitus position. The digital rectal exam revealed no abnormalities. The Olympus video pediatric colonoscope was entered into the rectum and advanced easily to the cecum. Once in the cecum, I did identify normal-appearing cecal pouch with appendiceal orifice, and a normal-appearing ileocecal valve. The terminal ileum was cannulated and appeared normal. The scope was withdrawn back in the colon. The entire cecum and ileocecal valve appeared normal. The scope was slowly withdrawn assessing all mucosal surfaces carefully. Preparation was excellent. In the transverse colon were 2 flat, but somewhat raised approximately 10 mm polyps, which were both removed by hot snare polypectomy and recovered by suction. Both polypectomy sites appeared clean, without any sign of residual polyp nor bleeding. At 50 cm was another flat, approximately 10 mm polyp, which was removed by hot snare polypectomy and recovered by suction. The polypectomy site appeared clean, without any sign of residual polyp nor bleeding. At 40 cm was an approximately 12 mm polyp, which was removed by hot snare polypectomy. There was some oozing at the polypectomy site, which was treated by further hot snare and cauterization with the tip of the scope onto the polypectomy site. At that point, there was good hemostasis. I did place 2 resolution clips onto the polypectomy sites with good deployment and good hemostasis. However, at that point, the polyp was not recovered. I did not visualize any other polyps, colitis, nor angiodysplasia. There was a mild amount of sigmoid diverticulosis. In the rectum, scope was retroflexed visualizing internal hemorrhoids but no other pathology. The rectal mucosa appeared normal. The scope was straightened and withdrawn from the patient. He was turned around for the upper endoscopy. The Olympus video gastroscope was passed in the posterior oropharynx and upper esophagus under direct vision. The scope was passed slowly to the distal esophagus. The gastroesophageal junction appeared at 39 cm. There was some slight irregularity and edema, but no erosions, ulceration, nor any definitive Childs's mucosa. The scope was advanced to the pylorus, and the duodenum was cannulated to the descending portion. The duodenum including the bulb appeared normal without mass or ulceration. The scope was withdrawn back in the stomach. The gastric antrum and body appeared normal with good peristalsis. The scope was retroflexed visualizing the proximal stomach carefully, which appeared normal, without any sign of mass or ulceration. The scope was straightened and withdrawn back to the esophagus. Biopsies were obtained at the EG junction at 39 cm. Proximal to this, the esophageal mucosa appeared normal. The scope was withdrawn from the patient. He tolerated both procedures well, and was returned to the recovery area in stable condition. IMPRESSION: 1. Colon polyps. 2. Diverticulosis. 3. Internal hemorrhoids. 4. Hiatal hernia, gastroesophageal reflux. PLAN: The results of the pathology will be checked. I would recommend a repeat colonoscopy in 5 years. He was advised not to use any aspirin or NSAIDs for 1 week. He was advised to continue cholestyramine as that had been helping his previous diarrhea. He will otherwise see me on a p.r.n. basis. MD ERMIAS Urbina/ERIS / [phone] MTDLori
== END 2023-07-17 14:16 | disposition home or self-care (01) ==
PROVIDERS: PCP Internal Medicine; Visit Provider Internal Medicine
PROC: (CPT 45385; principal; 2023-07-17 11:40)
DX: Z12.11 Encounter for screening for malignant neoplasm of colon (principal); Z86.010 Personal history of colon polyps; D12.3 Benign neoplasm of transverse colon; D12.5 Benign neoplasm of sigmoid colon; K57.30 Diverticulosis of large intestine without perforation or abscess without bleeding; K64.8 Other hemorrhoids; K21.9 Gastro-esophageal reflux disease without esophagitis; K44.9 Diaphragmatic hernia without obstruction or gangrene; E78.5 Hyperlipidemia, unspecified; J45.909 Unspecified asthma, uncomplicated; Z79.899 Other long term (current) drug therapy; F17.210 Nicotine dependence, cigarettes, uncomplicated
CPT/HCPCS: 45385; 43239; 88305

== ENCOUNTER 2024-05-09 12:59 | Outpatient (REF) | payer MEDICAID, SELFPAY ==
--- NOTE | ~2024-05-09 | CT_ITS ---
EXAMINATION: CT LOW-DOSE SCREENING CHEST WITHOUT CONTRAST CLINICAL INFORMATION: Nicotine dependence, cigarettes, uncomplicated. The patient is a current smoker with a 45 pack-year history of smoking. COMPARISON: CT chest 11/29/2022. X-ray chest 06/08/2017. TECHNIQUE: Multidetector volumetric CT imaging of the chest is performed on a Siemens SOMATOM Definition scanner without contrast using low dose technique. Additional 2D coronal and sagittal reformatted images and axial 3D maximum intensity projection (MIP) images are generated on the CT workstation. This CT examination was performed using dose optimization techniques as appropriate, variously including the following: *Automated exposure control *Adjustment of mA and/or kV according to patient size (this includes techniques or standardized protocols for targeted exams where dose is matched to indication/reason for exam; i.e. extremities or head) *Use of iterative reconstruction technique TOTAL EXAM DLP: 49 mGy-cm. CTDIvol: 1.50 mGy. FINDINGS: PULMONARY NODULES: -Study is somewhat limited due to suboptimal inspiration and groundglass changes in the lower lobes from dependent atelectasis/expiratory state. There is also respiratory motion artifact most notable in the lower lobe distribution. -6 mm subpleural nodule right posterior apex is unchanged and stable (series 5, image 103). -4 mm nodule superior segment right lower lobe (series 5, image 219), unchanged. -10 mm calcified granuloma medial left lower lobe, unchanged (series 5, image 322). -No definite new or enlarging nodules identified. LUNGS: -Lungs are in the expiratory state. Groundglass changes of microatelectasis. No consolidations or evidence of active disease. -Mild centrilobular emphysema again noted. -No effusions. -Small airways appear normal. Large airways appear normal. MEDIASTINUM: -There is no abnormal mediastinal or hilar lymphadenopathy. -The heart is borderline enlarged, which may be secondary to the expiratory state. -The aorta is minimally calcified but normal in caliber. -The pulmonary artery is normal in caliber. -Trachea is patent and normal. -No esophageal abnormality detected. -No pericardial effusion. CORONARY ARTERY CALCIFICATION: None visualized on this study. THYROID GLAND: Unremarkable to the extent seen. CHEST WALL/AXILLA: No masses or lymphadenopathy identified. UPPER ABDOMEN: -There is been a cholecystectomy. -There are calcifications in segment 8 of the liver, consistent with granulomas. The previously seen small cyst in segment 4A is difficult to visualized due to motion. No new liver abnormality detected. -There is a partially imaged cyst in the midpole of the right kidney. OSSEOUS STRUCTURES: No suspicious lytic or blastic bone lesion. Mild spinal degenerative changes. CT/CT lung screening IMPRESSION: 1. Stable exam given limitation of expiratory state. No definite new or enlarging nodules. Stable nodules measuring up to 6 mm right upper lobe. 2. Mild emphysema. 3. No active lung disease identified within the confines of expiration. 4. The previously seen 1 cm hypodense focus in segment 4A of the liver is obscured by motion on today's exam. Ultrasound of the liver could be considered to further characterize. ASSESSMENT: 1. Lung-RADS Category 2: Benign appearance or behavior of nodules. Expiration. 2. Lung-RADS Category S: None. RECOMMENDATION: Continued routine annual low-dose CT lung screening in 1 year is recommended. An order for CT CHEST LOW DOSE CANCER SCREENING ([id number]) can be placed.
== END 2024-05-09 13:00 | disposition home or self-care (01) ==
LOC: HO.CT 12:59
PROVIDERS: PCP Internal Medicine; Visit Provider Physician Assistant Medical
DX: Z12.2 Encounter for screening for malignant neoplasm of respiratory organs (principal); F17.210 Nicotine dependence, cigarettes, uncomplicated
CPT/HCPCS: 71271

== ENCOUNTER → 2024-05-09 12:59 | Outpatient (BNV) | payer MEDICAID, SELFPAY | PROVIDERS: PCP Internal Medicine; Visit Provider Radiology Diagnostic Radiology | DX: F17.200 Nicotine dependence, unspecified, uncomplicated (principal) | CPT/HCPCS: 71271 ==

== ENCOUNTER 2024-05-21 15:06 | Outpatient (REF) | payer MEDICAID, SELFPAY ==
[2024-05-21 15:20] LABS: MANUAL DIFF FLAG NO
[2024-05-21 16:28] LABS: Basophils Absolute Auto 0.1 X10*3/uL (0.0-0.2); Basophils Percent Auto 1.3 % (0-2); Eosinophils Absolute Auto 0.1 X10*3/uL (0.0-0.4); Eosinophils Percent Auto 1.3 % (0-4); Hematocrit 50.4 % (42.0-52.0); Hemoglobin 16.4 g/dl (14.0-18.0); Imm Gran Abs Auto 0.05 X10*3/uL (0.00-0.03); Imm Gran Pct Auto 0.6 % (0.0-0.4); Lymphocytes Absolute Auto 2.8 X10*3/uL (1.2-4.9); Lymphocytes Percent Auto 35.8 % (20-40); Mean Corpuscular HGB Conc 32.5 g/dl (31.0-36.0); Mean Corpuscular Hemoglobin 29.4 pg (27.0-33.0); Mean Corpuscular Volume 90.3 fL (80.0-98.0); Mean Platelet Volume 11.6 fL (9.4-12.4); Monocytes Absolute Auto 0.6 X10*3/uL (0.1-1.2); Neutrophils Absolute Auto 4.2 x10*3/uL (2.0-8.3); Platelet Count 223 X10*3/uL (160-400); Red Blood Count 5.58 X10*6/uL (4.60-5.80); Red Cell Distribution Width 13.6 % (11.0-16.0); White Blood Count 7.8 X10*3/uL (4.8-10.8)
[2024-05-21 17:00] LABS: Alanine Aminotransferase 17 U/L (0-40); Albumin Level 4.1 g/dL (3.5-5.0); Alkaline Phosphatase 89 U/L (39-117); Anion Gap 14 (12-20); Aspartate Amino Transferase 16 U/L (5-37); Bilirubin Total 0.5 mg/dL (0.0-1.0); Blood Urea Nitrogen 12 mg/dL (9-16); Calcium 8.9 mg/dL (8.4-10.2); Carbon Dioxide 27 mmol/L (22-29); Chloride 105 mmol/L (96-108); Cholesterol 191 mg/dL (<200); Estimated Glomerular Filt Rate > 60; Glucose Random 90 mg/dL (60-115); HDL Cholesterol 41 mg/dL (>40); LDL Cholesterol Calculated 125 mg/dL (<100); Potassium 3.9 mmol/L (3.3-5.1); Sodium 142 mmol/L (135-145); Total Protein 7.1 g/dL (6.5-8.0); Triglycerides 126 mg/dL (<150)
[2024-05-21 17:22] LABS: Prostate Specific Antigen 2.82 ng/mL (<0.05-4.0)
== END 2024-05-21 15:07 | disposition home or self-care (01) ==
LOC: HO.LAB 15:06
PROVIDERS: PCP Internal Medicine; Visit Provider Internal Medicine
DX: Z00.00 Encounter for general adult medical examination without abnormal findings (principal); E78.00 Pure hypercholesterolemia, unspecified; K59.00 Constipation, unspecified; N40.1 Benign prostatic hyperplasia with lower urinary tract symptoms; Z72.0 Tobacco use
CPT/HCPCS: 36415; 80053; 80061; 84153; 85025

== ENCOUNTER 2025-04-07 11:54 | Outpatient (REF) | payer MEDICAID, SELFPAY ==
[2025-04-07 13:11] LABS: MANUAL DIFF FLAG NO
[2025-04-07 13:31] LABS: Basophils Absolute Auto 0.1 X10*3/uL (0.0-0.2); Basophils Percent Auto 1.2 % (0-2); Eosinophils Absolute Auto 0.1 X10*3/uL (0.0-0.4); Eosinophils Percent Auto 0.9 % (0-4); Hematocrit 49.5 % (42.0-52.0); Hemoglobin 15.8 g/dl (14.0-18.0); Imm Gran Abs Auto 0.03 X10*3/uL (0.00-0.03); Imm Gran Pct Auto 0.3 % (0.0-0.4); Lymphocytes Absolute Auto 2.2 X10*3/uL (1.2-4.9); Lymphocytes Percent Auto 25.9 % (20-40); Mean Corpuscular HGB Conc 31.9 g/dl (31.0-36.0); Mean Corpuscular Hemoglobin 29.3 pg (27.0-33.0); Mean Corpuscular Volume 91.8 fL (80.0-98.0); Mean Platelet Volume 11.4 fL (9.4-12.4); Monocytes Absolute Auto 0.7 X10*3/uL (0.1-1.2); Monocytes Percent Auto 7.7 % (2-11); Neutrophils Absolute Auto 5.5 x10*3/uL (2.0-8.3); Platelet Count 200 X10*3/uL (160-400); Red Blood Count 5.39 X10*6/uL (4.60-5.80); Red Cell Distribution Width 13.2 % (11.0-16.0); White Blood Count 8.6 X10*3/uL (4.8-10.8)
--- OUTSIDE RECORDS SUMMARY | 2025-04-07 13:42 | XMS_ITS | Patient Health Record ---
Author Organization [facility] Address [address] [place] [id number] Care Team Providers Care Knitter Mechanic Name Role Phone CarolinamanavBecky Primary Care Provider Tere Hart Unavailable [phone] Allergies Allergen (clinical drug ingredient) Drug/Non Drug Allergy documented on EMR Reaction Allergy Type Onset Date Status aspirin Aspirin Unknown Drug Allergy Active Reason For Referral No Information Medications Medication SIG (Take, Route, Frequency, Duration) Notes Start Date End Date Status buPROPion HCl ER (XL) 300 MG TAKE 1 TABLET BY MOUTH DAILY Oral for 90 Active Azithromycin 250 MG 2 tablets on the , then 1 tablet daily for 4 days Orally Once a day Active Zantac 150 Maximum Strength 150 MG 1 tablet at bedtime Orally Once a day Not-Taking MiraLax (colon prep) 17 GM/SCOOP 1 238Gm bottle mixed with Gatorade or Crystal Light Orally begin at 5:00 p.m. the day before the procedure for 1 day 04/28/2023 Active ProAir HFA 108 (90 Base) MCG/ACT 2 puffs as needed Inhalation every 4 hrs Active Dulcolax (colon prep) 5 MG take at 3:00 p.m and 7:00p.m. Orally two tablets twice a day for one day for 1 day 04/28/2023 Active Dulcolax (colon prep) 5 MG take at 3:00 p.m and 7:00p.m. Orally two tablets twice a day for one day for 1 day 09/13/2017 Active MiraLax (colon prep) 8.3 ounce ((238) grams mixed with Gatorade or Crystal Light orally begin at 5:00 p.m. the day before the procedure for 1 day 09/13/2017 Active Anoro Ellipta 62.5-25 MCG/ACT INHALE 1 PUFF BY MOUTH DAILY Inhalation for 30 Active Omeprazole 20 MG TAKE ONE CAPSULE BY MOUTH EVERY DAY Oral for 90 Active Nicotine 21 MG/24HR APPLY ONE PATCH EVER Y DAY Transdermal for 84 Active Cholestyramine 4 GM MIX AND DRINK 1 PACK BY MOUTH TWICE DAILY Oral for 90 Active Sildenafil Citrate 100 MG TAKE 1 TABLET BY MOUTH EVERY DAY Oral for 7 Active Atorvastatin Calcium 80 MG TAKE 1 TABLET BY MOUTH DAILY AT BEDTIME Oral for 90 Active Immunizations Vaccine Route Administration Date Status Comme nts Influenza Unknown 08/16/2022 Administered Social History Tobacco Use: Social History Observation Description Date Details (start date - stop date) Current Smoker NA - NA Tobacco Use/Smoking Question Answer Notes Patient is a current smoker How often do you smoke cigarettes? every day How many cigarettes a day do you smoke? 11-20 How soon after you wake up d o you smoke your first cigarette? 6-30 minutes Are you interested in quitting? Thinking about q uitting Alcohol Screen Question Answer Notes Did you have a drink containing alcohol in the p ast year? No Points 0 Interpretation Negative Section Notes: Smokes 1ppd; no sig alcohol Smokes 1 ppd; no sig alcohol Problems Problem Type SNOMED Code ICD Code Onset Dates Problem Status W/U Status Risk Notes Problem Esophageal reflu x (K21.9) Active confirmed Problem 218100686 Encounter for screening for malignant neoplasm of colon (Z12.11) Active confirmed Problem 154528536 History of adenomatous polyp of colon (Z86.010) Active confirmed Problem 351798061 Abdominal pain, left lower quadrant (R10.32) Active confirmed Problem 36387176 Irritable bowel syndrome, unspecified type (K58.9) Active confirmed Problem Diverticulosis of colon (413607188) Diverticulosis of colon (K57.30) Active confirmed Problem 478325118 Gastroesophageal reflux disease, unspecified whether esophagitis present (K21.9) Active confirmed Plan Of Treatment Pending Test Test Name Order Date Pathology 07/17/2023 Future Test Test Name Order Date COLONOSCOPY 03/03/2017 UPPER GI ENDOSCOPY 04/19/2023 COLONOSCOPY 04/19/2023 Insurance Providers Payer Name Payer Address Payer Phone Subscriber Number Group Number Insured Name Patient Relationship to Insured Coverage Start Date Coverage End Date [place] [address] [place] [phone] [id number] EDVIN MADRIGAL Self - patient is the insured Medical (General) History Medical History History ICD Code Colonoscopy 06-06-2011--small tubular scar omas, diverticulosis Denies [place],DM,CVA,renal disease Mild asthma Colonoscopy 2016 with small tubular scar omas removed Hyperlipidemia GERD Surgical History Surgery Date(Month/Year) Right hand surgery in relation to an acc ident Tonsillectomy CCY at [facility] 08/2022
[2025-04-07 13:58] LABS: Prostate Specific Antigen Scr 2.49 ng/mL (<0.05-4.0)
[2025-04-07 14:07] LABS: Alanine Aminotransferase 17 U/L (0-40); Albumin Level 3.9 g/dL (3.5-5.0); Alkaline Phosphatase 77 U/L (39-117); Anion Gap 8 (12-20); Aspartate Amino Transferase 21 U/L (5-37); Bilirubin Total 0.5 mg/dL (0.0-1.0); Blood Urea Nitrogen 10 mg/dL (9-16); Calcium 8.6 mg/dL (8.4-10.2); Carbon Dioxide 32 mmol/L (22-29); Chloride 105 mmol/L (96-108); Cholesterol 143 mg/dL (<200); Estimated Glomerular Filt Rate > 60; Glucose Random 103 mg/dL (60-115); HDL Cholesterol 35 mg/dL (>40); LDL Cholesterol Calculated 92 mg/dL (<100); Potassium 3.9 mmol/L (3.3-5.1); Sodium 141 mmol/L (135-145); Total Protein 6.6 g/dL (6.5-8.0); Triglycerides 82 mg/dL (<150)
[2025-04-07 14:29] LABS: TSH reflex Free T4 0.99 uIU/mL (0.32-4.0)
== END 2025-04-07 11:55 | disposition home or self-care (01) ==
LOC: HO.10HDL 11:54
PROVIDERS: Visit Provider Internal Medicine
DX: Z00.00 Encounter for general adult medical examination without abnormal findings (principal); E78.00 Pure hypercholesterolemia, unspecified; F41.8 Other specified anxiety disorders; H92.01 Otalgia, right ear; N40.0 Benign prostatic hyperplasia without lower urinary tract symptoms; Z72.0 Tobacco use
CPT/HCPCS: 36415; 80053; 80061; 84153; 84443; 85025

== ENCOUNTER 2025-05-27 13:13 | Outpatient (REF) | payer MEDICAID, SELFPAY ==
--- NOTE | ~2025-05-27 | CT_ITS ---
CLINICAL HISTORY: F17.210 - Nicotine dependence, cigarettes, uncomplicated CT lung cancer screening (LDCT) Comparison: CT/REG/NE/SR - CT LUNG SCREENING - 05/09/24 13:[address]/SR - CT LUNG SCREENING - 11/29/22 13:17 EST Technique: Axial CT images of the chest using low-dose technique. Referring provider counseled the patient on shared decision-making for LDCT screening. Additional counseling was provided on smoking cessation. Effective radiation dose total: DLP 71.3 mGycm, CTDIvol 1.9 mGy. Findings: Lung: Mild emphysema. Calcified granulomas. Stable 4 mm subpleural nodular density of the right upper lobe series 4, image 33. Stable 4.5 mm nodule of the right lower lobe series 4, image 77. Coronary artery calcifications: None Limited upper abdomen: Unremarkable Other: None Impression: LungRADS 2 - Benign Appearance: Continue annual screening with low dose Chest CT in 12 months. ##L2## Category 1: Normal; continue annual screening Category 2: Benign appearance or behavior, continue annual screening Category 3: Probably benign, [address] recommended Category 4A: Suspicious, [address] recommended; may consider PET/CT Category 4B: Suspicious, Additional diagnostics and/or tissue sampling recommended Category 4X: Suspicious, Additional diagnostics and/or tissue sampling recommended Category 0: Recalls (incomplete screen due to Incomplete coverage, Noise, Respiratory motion, Expiration, Obscured by acute abnormality) This document has been electronically signed by: Paul Townsend MD on 05/27/2025 15:10:59
--- OUTSIDE RECORDS SUMMARY | 2025-05-27 14:00 | XMS_ITS | Clinical Summary ---
Author Organization [facility] Address [address] [place] [address] Care Team Providers Care Pulp Press Tender Name Role Phone Becky Rayo MD Primary Care Provider [phone] Surgical History Surgery Date Site/Laterality Comments CHOLECYSTECTOMY 09/2022 N/A PROCEDURE: HISTORICAL CHOLECYSTECTOMY TONSILLECTOMY Bilateral PROCEDURE: HISTORICAL TONSILLECTOMY Medical History Medical History Date Comments COPD (chronic obstructive pu lmonary disease) (CMS/[facility] V24, CMS/[facility] V28) DX:COPD (chronic o bstructive pulmonary disease) (HCC) Emphysema lung (CMS/[facility] V24, CMS/[facility] V28) DX:Emphysema lung (HCC) BPH (benign prostatic hyperplasia) DX:BPH (benign prostatic hyperplasia) Family History Medical History Relation Name Comments Coronary artery disease Father Heart attack Father Hypertension Father Hypertension Mother Lung cancer Mother Uterine cancer Mother Relation Name Status Comments Father Alive Mother Alive Social History Tobacco Use Types Packs/Day Years Used Date Smoking Tobacco: Every Day Cigarettes Sex and Gender Information Value Date Recorded Sex Assigned at Not on file Legal Sex Male 3:59 AM EST Gender Identity Not on file Sexual Orientation Not on file Obstetrics History Last Filed Vital Signs Vital Sign Reading Time Taken Comments Blood Pressure 113/73 08/23/2022 11:26 AM EDT Pulse 67 08/23/2022 11:26 AM EDT Temperature - - Respiratory Rate - - Oxygen Saturation - - Inhaled Oxygen Concentration - - Weight 76.4 kg (168 lb 6.4 oz) 08/23/2022 11:26 AM EDT Height - - Body Mass Index - - Plan of Treatment Health Maintenance Due Date Last Done Comments Pneumococcal Vaccine: 50+ Ye ars (1 of 2 - PCV) 1978 Zoster Vaccines (1 of 2) 2009 RSV Immunization Adult Patie nts (1 - Risk 60-74 years 1-dose series) 2019 Abdominal Aortic Aneurysm (A AA) Screen 10/02/2022 Cholesterol Screening (Lipid Panel) 10/02/2022 Colorectal Cancer Screening: Colonoscopy 10/02/2022 Hepatitis C Screening 10/02/2022 Social Influencers of Health Screening 10/02/2022 COVID-19 Vaccine (1 - 2023-2 5 season) 2024 Falls Risk Assessment 2024 Depression Screening 10/30/2024 Influenza Vaccine (#1) 2025 11/05/2020 DTaP,Tdap,and Td Vaccines (2 - Td or Tdap) 04/09/2027 04/09/2017 HIB Vaccines Aged Out No longer eligi ble based on patient's age to complete this topic HPV Vaccines Aged Out No longer eligi ble based on patient's age to complete this topic Hepatitis A Vaccines Aged Out No long er eligible based on patient's age to complete this topic Hepatitis B Vaccines Aged Out No long er eligible based on patient's age to complete this topic IPV Vaccines Aged Out No longer eligi ble based on patient's age to complete this topic MMR Vaccines Aged Out No longer eligi ble based on patient's age to complete this topic Meningococcal ACWY Vaccine Aged Out N o longer eligible based on patient's age to complete this topic Meningococcal B Vaccine Aged Out No l onger eligible based on patient's age to complete this topic RSV Immunization Patients Un tom 20 months Aged Out No longer eligible b ased on patient's age to complete this topic Varicella Vaccines Aged Out No longer eligible based on patient's age to complete this topic Care Teams Pulp Press Tender Relationship Specialty Start Date End Date Becky Rayo MD [address] [place] [address] PCP - General Internal Medicine 09/07/21
--- OUTSIDE RECORDS SUMMARY | 2025-05-27 14:00 | XMS_ITS | Patient Health Record ---
Author Organization [facility] Address [address] [place] [address] Care Team Providers Care Technical Maintenance Specialist Name Role Phone CarolinamanavBecky Primary Care Provider Tere Hart Unavailable [phone] Allergies Allergen (clinical drug ingredient) Drug/Non Drug [...] Status W/U Status Risk Notes Problem Esophageal reflux (206321398) Esophageal reflux (K21.9) Active confirmed Problem 225972883 Encounter for screening for malignant neoplasm of colon (Z12.11) Active confirmed Problem 991039999 History of adenomatous polyp of colon (Z86.010) Active confirmed Problem 207960632 Abdominal pain, left lower quadrant (R10.32) Active confirmed Problem 67781454 Irritable bowel syndrome, unspecified type (K58.9) Active confirmed Problem Diverticulosis of colon (205552339) Diverticulosis of colon (K57.30) Active confirmed Problem 912957856 Gastroesophageal reflux disease, unspecified whether esophagitis present [...] [place] [address] [place] [phone] [id number] EDVIN MADRIGAL Self - patient is the insured Medical (General) History Medical History History ICD Code Colonoscopy 06-06-2011--small tubular scar omas, diverticulosis Denies [place],DM,CVA,renal disease Mild asthma Colonoscopy 2016 with small tubular scar omas removed Hyperlipidemia GERD Surgical History Surgery Date(Month/Year) Right hand surgery in relation to an acc ident Tonsillectomy [facility] at [facility] 08/2022
== END 2025-05-27 13:14 | disposition home or self-care (01) ==
LOC: HO.CT 13:13
PROVIDERS: PCP Internal Medicine; Visit Provider Physician Assistant Medical
DX: Z12.2 Encounter for screening for malignant neoplasm of respiratory organs (principal); F17.210 Nicotine dependence, cigarettes, uncomplicated
CPT/HCPCS: 71271

== ENCOUNTER → 2025-05-27 13:15 | Outpatient (BNV) | payer MEDICAID, SELFPAY | PROVIDERS: PCP Internal Medicine; Visit Provider Nuclear Medicine | DX: Z12.2 Encounter for screening for malignant neoplasm of respiratory organs (principal); F17.210 Nicotine dependence, cigarettes, uncomplicated | CPT/HCPCS: 71271 ==

== ENCOUNTER 2025-09-17 19:01 | Emergency (ER) | payer MEDICARE, MEDICAID, SELFPAY ==
--- NOTE | ~2025-09-17 | XR_ITS ---
CLINICAL HISTORY: cough, sob, cp 2 view chest x-ray Comparison: None provided Findings: Lungs are clear without acute infiltrates. No pneumothorax. Heart size normal. No acute bony abnormalities. Impression: No acute processes This document has been electronically signed by: Zackary Dotson MD on 09/17/2025 20:30:17
--- NOTE | 2025-09-17 19:02 | ECG_ITS ---
Test Reason : CP Blood Pressure : */* mmHG Vent. Rate : 75 BPM Atrial Rate : 75 BPM P-R Int : 152 ms QRS Dur : 102 ms QT Int : 394 ms P-R-T Axes : 8 -44 42 degrees QTcB Int : 439 ms Normal sinus rhythm Left axis deviation Minimal voltage criteria for LVH, may be normal variant ( [place] product ) Possible Anterior infarct , age undetermined Abnormal ECG When compared with ECG of 03-Jan-2005 19:37, Borderline criteria for Anterior infarct are now Present Nonspecific T wave abnormality has replaced inverted T waves in Inferior leads Referred By: Shahida Irwin Electronically Signed By: TOBY MCDUFFIE
[2025-09-17 19:15] VITALS: BP 125/62; PULSE 75; RESP 20; TEMP 36.7; O2SAT 97; BMI 27.0
--- NOTE | 2025-09-17 19:16 | ED_ITS ---
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 Patient reports chest pain for the last 2-3 days pain In his symptoms has been intermittent. Denies any nausea or vomiting pain He also endorses a dry cough Denies any fevers or chills. No other complaints or concerns at this time Related Data Home Medications ?Medication ?Instructions ?Recorded ?Confirmed atorvastatin 80 mg tablet 80 mg PO BEDTIME 07/13/23 bupropion HCl 300 mg 24 hr tablet, 300 mg PO DAILY 07/13/23 extended release ondansetron 4 mg disintegrating 4 mg PO Q12H PRN nause a 07/13/23 07/13/23 tablet pantoprazole 40 mg tablet,delayed 40 mg PO DAILY 07/1307/13/23 release umeclidinium 62.5 mcg-vilanterol 1 ea inhalation DAILY 07/13/23 07/13/23 25 mcg/actuation powdr for inhalation (Anoro Ellipta) Previous Rx's ?Medication ?Instructions ?Recorded pantoprazole 40 mg tablet,delayed 40 mg PO DAILY #30 t abs 06/17/23 release (Protonix) sucralfate 1 gram tablet 1 g PO TID #90 tabs 06/17/23 pantoprazole 40 mg tablet,delayed 40 mg PO DAILY #30 t abs 09/17/25 release Allergies Allergy/AdvReac Type Severity Reaction Status Date / Time aspirin Allergy Unknown gastritis Verified 09/17/25 19:17 penicillin V Allergy Unknown rash Verified 09/17/25 19:17 morphine AdvReac Chest Pain Verified 09/17/25 19:17 Review of Systems 2 Constitutional: Constitutional: Denies body ache(s), Denies chills, Denies fever(s) and Denies headache(s) ENT: Denies dizziness and Denies headache(s) Cardiovascular: Cardiovascular: Reports chest pain and Denies dyspnea on exertion Respiratory: Respiratory: Reports cough and Denies dyspnea on exertion Gastrointestinal: Gastrointestinal: Reports abdominal pain, Denies nausea and Denies vomiting Musculoskeletal: Musculoskeletal: Denies back pain Neurologic: Denies dizziness and Denies headache(s) [facility] Past Medical History Medical History (Updated 09/17/25 @ 23:17 by Brent Vazquez) Nicotine dependence, cigarettes, uncomplicated Hyperlipemia GERD (gastroesophageal reflux disease) Asthma Surgical History (Updated 07/13/23 @ 13:47 by Angélica Newman RN) History of tonsillectomy H/O hand surgery Hx of colonoscopy Social History Social History Patient Tobacco Use Status: Current everyday Tobacco user Tobacco use type: Cigarette Cigarette Packs Per Day: 1 Cigarettes Per Day: 20.0 Advance Directives: No Advance Directives Information Provided: No Physical Exam 2 Vital Signs: Vital Signs: Last Vital Signs Temp 97.9 F 09/17/25 22:40 Pulse 68 09/17/25 22:40 Resp 18 09/17/25 22:40 BP 143/72 H 09/17/25 22:40 Pulse Ox 96 09/17/25 22:40 O2 Del Method Room Air 09/17/25 22:40 BMI result Body Mass Index 27.0 Const: General: healthy appearing, comfortable, no acute distress, alert and awake Nutritional Appearance: well nourished Orientation/consciousness: p atient oriented x3 HEENT: Head: Yes normocephalic and Yes atraumatic Neck: Neck: Yes full ROM Resp: Effort & Inspection: normal respiratory effort, able to speak in complete sentences and not labored GI: Inspection: No distended Palpation (GI): Soft to palpation, not firm, nontender, no guarding and not rigid Auscultation: normoactive bowel sounds Skin: General skin exam: elasticity normal Neuro: General: patient oriented x3 Cranial nerves: Yes Bilaterally intact EOM present Cognition (Neuro): normal cognition Course Course Course Narrative: This is a Rapid Medical Exam performed in triage by Shahida Irwin PA-C. Full HPI, ROS and PE to be performed by primary ED provider. 65 yo M w/pmhx GERD, Asthma, HLD presenting to the ED c/o productive cough, CP & SOB x yesterday - worsening today. Pain started when he woke up & has been constant PE: NAD, nontoxic appearing, Lungs CTA Plan: EKG, Labs, viral testing, CXR Reevaluation(s) Reevaluation #1: Patient re-evaluated, he reports that his chest pain has significantly improved after GI cocktail. The patient will be discharged in stable condition Time: 23:20 Medications Administered Discontinued Medications Generic Name Dose Route Start Last Admin Trade Name Freq PRN Reason Stop Dose Admin Al Hydroxide/Mg Hydroxide 30 ml 09/17/25 22:36 09/17/25 23:02 Magnesium Hydrox/Alum Hydrox 30 Ml Oral.Susp PO 09/17/25 22:37 30 ml ONCE ONE Administration Lidocaine HCl 15 ml 09/17/25 22:36 09/17/25 23:02 Lidocaine Hcl Viscous 2 % 15 Ml Solution MUCOUS MEM 09/17/25 22:37 15 ml ONCE ONE Administration Ondansetron HCl 4 mg 09/17/25 22:36 09/17/25 23:02 Ondansetron Odt 4 Mg Tab.Rapdis TRANSLINGU 09/17/25 22:37 4 mg ONCE ONE Administration Medical Decision Making Medical Decision Making [facility] Narrative: 65-year-old male past medical history as above presents for evaluation of chest pain. His chest pain is intermittent, he describes it as a pressure. He had a workup that included labs, EKG and a chest x-ray. His workup was largely unremarkable, he rules out for ACS with a negative troponin, nonischemic EKG despite several days of chest pain. Clinically the patient does have a history of GERD and gastritis, I ordered a GI cocktail Differential Diagnosis Differential Diagnoses: The differential diagnosis associated with the presentation includes Chest pain GERD Gastritis ACS Bronchitis Lab Data [facility] Lab Attestation statement: I reviewed the patient's lab results. No leukocytosis or anemia. Normal platelet count. No electrolyte abnormalities warranting dimension. Troponin not detected 09/17/25 19:52 09/17/25 19:52 Labs: Lab Results 09/17/25 Range/Units 19:52 WBC 8.6 (4.8-10.8) X10*3/uL RBC 5.31 (4.60-5.80) X10*6/uL Hgb 15.6 (14.0-18.0) g/dl Hct 48.6 (42.0-52.0) % MCV 91.5 (80.0-98.0) fL MCH 29.4 (27.0-33.0) pg MCHC 32.1 (31.0-36.0) g/dl RDW 13.1 (11.0-16.0) % Plt Count 206 (160-400) X10*3/uL MPV 11.3 (9.4-12.4) fL Immature Gran % (Auto) 0.4 (0.0-0.4) % Neut % (Auto) 63.2 (45-73) % Lymph % (Auto) 27.1 (20-40) % [place] % (Auto) 7.0 (2-11) % Eos % (Auto) 1.2 (0-4) % Baso % (Auto) 1.1 (0-2) % Lymph # (Auto) 2.3 (1.2-4.9) X10*3/uL [place] # (Auto) 0.6 (0.1-1.2) X10*3/uL Eos # (Auto) 0.1 (0.0-0.4) X10*3/uL Baso # (Auto) 0.1 (0.0-0.2) X10*3/uL Abs Immat Gran (auto) 0.03 (0.00-0.03) X10*3/uL Absolute Neuts (auto) 5.4 (2.0-8.3) x10*3/uL Absolute Nucleated RBC 0.000 (0.0-0.012) X10*3/uL Nucleated RBC % (auto) 0.0 (0.0-0.2) /100WBC Sodium 142 (135-145) mmol/L Potassium 3.7 (3.3-5.1) mmol/L Chloride 105 (96-108) mmol/L Carbon Dioxide 27 (22-29) mmol/L Anion Gap 14 (12-20) BUN 12 (9-16) mg/dL Creatinine 0.85 (0.5-1.4) mg/dL Estim Creat Clear Calc 74.3 Estimated GFR > 60 Random Glucose 107 (60-115) mg/dL Calcium 8.7 (8.4-10.2) mg/dL Troponin I High Sens < 2.7 (<3.5-35.0) ng/L Independent Interpretation I performed an independent interpretation of an: EKG Interpretation: Normal sinus rhythm with a rate of [address] segment elevations or depressions Radiology Impression Discussion of test interpretation with radiology: I have reviewed the radiologist's reading. Radiologist Impression: Findings: Lungs are clear without acute infiltrates. No pneumothorax. Heart size normal. No acute bony abnormalities. Impression: No acute processes This document has been electronically signed by: Zackary Dotson MD on 09/17/2025 20:30:17 Discharge Plan Discharge Clinical Impression: Chest pain, Chest pain due to GERD Patient Disposition: Home, Self-Care Instructions: GERD (Gastroesophageal Reflux Disease) (ED) Additional Instructions: Your workup in the emergency department Was reassuring. You were treated with a medication that treats GERD Follow up with your primary doctor, return for new or worsening symptoms Prescriptions: New pantoprazole 40 mg tablet,delayed release (DR/EC) 40 mg PO DAILY Qty: 30 0RF No Action atorvastatin 80 mg tablet 80 mg PO BEDTIME pantoprazole 40 mg tablet,delayed release (DR/EC) 40 mg PO DAILY ondansetron 4 mg tablet,disintegrating 4 mg PO Q12H PRN (Reason: nausea) bupropion HCl 300 mg tablet extended release 24 hr 300 mg PO DAILY Anoro Ellipta 62.5-25 mcg/actuation blister with device 1 ea INHALATION DAILY pantoprazole [Protonix] 40 mg tablet,delayed release (DR/EC) 40 mg PO DAILY Qty: 30 0RF sucralfate 1 gram tablet 1 g PO TID Qty: 90 0RF Rx Instructions: Take 1 tablet half an hour before your meals Print Language: Maori
[2025-09-17 20:19] LABS: MANUAL DIFF FLAG NO
[2025-09-17 20:22] LABS: Hematocrit 48.6 % (42.0-52.0); Hemoglobin 15.6 g/dl (14.0-18.0); Imm Gran Abs Auto 0.03 X10*3/uL (0.00-0.03); Imm Gran Pct Auto 0.4 % (0.0-0.4); Lymphocytes Absolute Auto 2.3 X10*3/uL (1.2-4.9); Mean Corpuscular HGB Conc 32.1 g/dl (31.0-36.0); Mean Corpuscular Hemoglobin 29.4 pg (27.0-33.0); Mean Corpuscular Volume 91.5 fL (80.0-98.0); NRBC Abs Auto 0.000 X10*3/uL (0.0-0.012); NRBC Pct Auto 0.0 /100WBC (0.0-0.2); Platelet Count 206 X10*3/uL (160-400); Red Blood Count 5.31 X10*6/uL (4.60-5.80); White Blood Count 8.6 X10*3/uL (4.8-10.8)
[2025-09-17 20:45] LABS: Anion Gap 14 (12-20); Blood Urea Nitrogen 12 mg/dL (9-16); Calcium 8.7 mg/dL (8.4-10.2); Carbon Dioxide 27 mmol/L (22-29); Chloride 105 mmol/L (96-108); Creatinine Clr Calc Pharmacy 74.3; Estimated Glomerular Filt Rate > 60; Potassium 3.7 mmol/L (3.3-5.1); Sodium 142 mmol/L (135-145)
[2025-09-17 20:55] LABS: Troponin-I High Sensitivity < 2.7 ng/L (<3.5-35.0)
[2025-09-17 22:40] VITALS: BP 143/72; PULSE 68; RESP 18; TEMP 36.6; O2SAT 96
[2025-09-17] MEDS: Magnesium Hydrox/Alum Hydrox 30 ML ORAL.SUSP PO (23:02)
[2025-09-17] MEDS: Lidocaine HCl Viscous 2 % 15 ML SOLUTION MUCOUS MEM (23:02)
[2025-09-17 23:35] LABS: Resp Syncy Virus RNA Qual PCR NEGATIVE (Negative); SARS COV2 PCR INHOUSE NEGATIVE (Negative)
[2025-09-17 23:41] VITALS: BP 123/72; PULSE 66; RESP 20; TEMP 36.7; O2SAT 97
--- OUTSIDE RECORDS SUMMARY | 2025-09-18 05:23 | XMS_ITS | Patient Health Record ---
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 Name Role Phone Dontaasia Becky Primary Care Provider Tere Hart Unavailable [phone] Allergies Allergen (clinical drug ingredient) Drug/Non Drug Allergy documented on EMR Reaction Allergy Type Onset Date Status aspirin Aspirin Unknown Drug Allergy Active Reason For Referral No Information Medications Medication SIG (Take, Route, Frequency, Duration) Notes Start Date End Date Status buPROPion HCl ER (XL) 300 MG Tablet Extended Release 24 Hour TAKE 1 TABLET BY MOUTH DAILY Oral; Duration: 90 Active Azithromycin 250 MG Tablet 2 tablets on the first day, then 1 tablet daily for 4 days Orally Once a day Active Zantac 150 Maximum Strength 150 MG Tablet 1 tablet at bedtime Orally Once a day Not-Taking/PRN MiraLax (colon prep) 17 GM/SCOOP Powder 1 238Gm bottle mixed with Gatorade or Crystal Light Orally begin at 5:00 p.m. the day before the procedure; Duration: 1 day 04/28/2023 Active ProAir HFA 108 (90 Base) MCG/ACT Aerosol Solution 2 puffs as needed Inhalation every 4 hrs Active Dulcolax (colon prep) 5 MG Tablet Delayed Release take at 3:00 p.m and 7:00p.m. Orally two tablets twice a day for one day; Duration: 1 day 04/28/2023 Active Dulcolax (colon prep) 5 MG Tablet Delayed Release take at 3:00 p.m and 7:00p.m. Orally two tablets twice a day for one day; Duration: 1 day 09/13/2017 Active MiraLax (colon prep) 8.3 ounce ((238) grams mixed with Gatorade or Crystal Light orally begin at 5:00 p.m. the day before the procedure; Duration: 1 day 09/13/2017 Active Anoro Ellipta 62.5-25 MCG/ACT Aerosol Powder Breath Activated INHALE 1 PUFF BY MOUTH DAILY Inhalation; Duration: 30 Active Omeprazole 20 MG Capsule Delayed Release TAKE ONE CAPSULE BY MOUTH EVERY DAY Oral; Duration: 90 Active Nicotine 21 MG/24HR Patch 24 Hour APPLY ONE PATCH EVERY DAY Transdermal; Duration: 84 Active Cholestyramine 4 GM Packet MIX AND DRINK 1 PACK BY MOUTH TWICE DAILY Oral; Duration: 90 Active Sildenafil Citrate 100 MG Tablet TAKE 1 TABLET BY MOUTH EVERY DAY Oral; Duration: 7 Active Atorvastatin Calcium 80 MG Tablet TAKE 1 TABLET BY MOUTH DAILY AT BEDTIME Oral; Duration: 90 Active Immunizations Vaccine Route Administration Date Status Comme nts Influenza Unknown 08/16/2022 Administered Social History Tobacco Use: Social History Observation Description Date Details (start date - stop date) Current Smoker NA - NA Social History Drugs/Alcohol: Social Info Question Answer Notes Alcohol Screen Did you have a drink containing alcohol in the past year? No Points 0 Interpretation Negative Tobacco Use: Social Info Question Answer Notes Tobacco Use/Smoking Patient is a current smoker How often do you smoke cigarettes? every day How many cigarettes a day do you smoke? 11-20 How soon after you wake up do you smoke your first cigarette? 6-30 minutes Are you interested in quitting? Thinking about quitting Additional Details Category Social Info Options Details Miscellaneous: Marital status: Occupation: disabled Section Notes: Smokes 1ppd; no sig alcohol Smokes 1 ppd; no sig alcohol Problems Problem Type SNOMED Code ICD Code Onset Dates Problem Status W/U Status Risk Notes Problem Esophageal reflux (426942598) Esophageal reflux (K21.9) Active confirmed Problem Screening for malignant neoplasm of colon (292273629) Encounter for screening for malignant neoplasm of colon (Z12.11) Active confirmed Problem History of adenomatous polyp of colon (703702849) History of adenomatous polyp of colon (Z86.010) Active confirmed Problem Left lower quadrant pain (524283073) Abdominal pain, left lower quadrant (R10.32) Active confirmed Problem Irritable bowel syndrome (46574608) Irritable bowel syndrome, unspecified type (K58.9) Active confirmed Problem Diverticulosis of colon (612547639) Diverticulosis of colon (K57.30) Active confirmed Problem Gastroesophageal reflux disease (237699910) Gastroesophageal reflux disease, unspecified whether esophagitis present (K21.9) Active confirmed Plan Of Treatment Pending Test Test Name Order Date Pathology 07/17/2023 Future Test Test Name Order Date COLONOSCOPY 03/03/2017 UPPER GI ENDOSCOPY 04/19/2023 COLONOSCOPY 04/19/2023 Insurance Providers Payer Name Payer Address Payer Phone Subscriber Number Group Number Insured Name Patient Relationship to Insured Coverage Start Date Coverage End Date MEDICAID OF [facility] [address] [place] [id number] EDVIN MADRIGAL Self - patient is the insured Medical (General) History Medical History History ICD Code Colonoscopy 06-06-2011--small tubular scar omas, diverticulosis Denies CA,DM,CVA,renal disease Mild asthma Colonoscopy 2016 with small tubular scar omas removed Hyperlipidemia GERD Surgical History Surgery Date(Month/Year) Right hand surgery in relation to an acc ident Tonsillectomy [facility] at [facility] 08/2022
== END 2025-09-17 23:45 | disposition home or self-care (01) ==
PROVIDERS: Physician Assistant; Emergency Provider Emergency Medicine; PCP Internal Medicine
DX: K21.9 Gastro-esophageal reflux disease without esophagitis (principal); R07.9 Chest pain, unspecified; Z03.818 Encounter for observation for suspected exposure to other biological agents ruled out; R05.9 Cough, unspecified; R06.02 Shortness of breath; R94.31 Abnormal electrocardiogram [ECG] [EKG]
CPT/HCPCS: 71046; 80048; 84484; 85025; 87637; 93005; 99283; 99284

== ENCOUNTER → 2025-09-17 19:02 | Outpatient (BNV) | payer MEDICARE, MEDICAID, SELFPAY | PROVIDERS: Emergency Provider Emergency Medicine; PCP Internal Medicine; Visit Provider Internal Medicine | DX: R94.31 Abnormal electrocardiogram [ECG] [EKG] (principal); R07.9 Chest pain, unspecified | CPT/HCPCS: 93010 ==

== ENCOUNTER → 2025-09-17 19:19 | Outpatient (BNV) | payer MEDICARE, MEDICAID, SELFPAY | PROVIDERS: PCP Internal Medicine; Visit Provider Radiology Diagnostic Radiology | DX: R07.9 Chest pain, unspecified (principal); R05.9 Cough, unspecified; R06.02 Shortness of breath | CPT/HCPCS: 71046 ==